=== PATIENT | female | born 1975 | race Caucasian/White ===

== ENCOUNTER 2018-10-16 05:29 | Inpatient (IN) | payer MEDICAID ==
[2018-10-16] VITALS (23 sets, daily range): BP systolic 102–146; BP diastolic 37–90
[~2018-10-16] VITALS: Ht 167.6 cm; Wt 99.3 kg
[2018-10-16] MEDS ORDERED: GELATIN SPONGE,ABSORBABLE 12-7MM SPONGE ONE (06:40)
[2018-10-16] MEDS ORDERED: THROMBIN (BOVINE) 5000 UNITS/VIAL TOP ONE (06:41)
[2018-10-16] MEDS ORDERED: LIDOCAINE HCL/EPINEPHRINE 1%-EPI 1:100,000 20 ML VIAL ONE (06:41)
[2018-10-16] MEDS ORDERED: BACITRACIN 50,000 UNITS/VIAL ONE (06:41)
[2018-10-16] MEDS ORDERED: NEOSTIGMINE METHYLSULFATE 1MG/ML 10 ML VIAL ONE (07:13)
[2018-10-16] MEDS ORDERED: FENTANYL CITRATE/PF 50MCG/ML 2ML VIAL ONE ×2 (07:13→08:09)
[2018-10-16] MEDS ORDERED: ROCURONIUM BROMIDE 10MG/ML VIAL 5ML IV ONE (07:14)
[2018-10-16] MEDS ORDERED: MIDAZOLAM HCL 2 MG/2 ML VIAL ONE (07:15)
[2018-10-16] MEDS ORDERED: PROPOFOL 200MG/20ML VIAL IV ONE (07:26)
[2018-10-16] MEDS ORDERED: NICARDIPINE 100 MG in SODIUM CHLORIDE 0.9% 60 ML IV PRN (07:30)
[2018-10-16] MEDS ORDERED: GLYCOPYRROLATE 0.2 MG/ML 2ML VIAL ONE (08:08)
[2018-10-16] MEDS ORDERED: KETOROLAC 30MG/ML VIAL ONE (08:09)
[2018-10-16] MEDS ORDERED: BACL20TA PO (08:10)
[2018-10-16] MEDS ORDERED: NORT25CA PO (08:10)
[2018-10-16] MEDS ORDERED: BUPR100T13 PO (08:10)
[2018-10-16] MEDS ORDERED: ACET-2853 PO (08:10)
[2018-10-16] MEDS ORDERED: GABA-531 PO (08:10)
[2018-10-16] MEDS ORDERED: ATOR40TA70 PO (08:10)
[2018-10-16] MEDS ORDERED: QUET200T29 PO (08:10)
[2018-10-16] MEDS ORDERED: METF-414 PO (08:10)
[2018-10-16] MEDS ORDERED: PARO10TA74 PO (08:10)
[2018-10-16] MEDS ORDERED: OMEP20CA10 PO (08:10)
[2018-10-16] MEDS ORDERED: DEXTROSE 50% WATER 50ML SYRINGE IV PRN (09:15)
[2018-10-16] MEDS: MORPHINE SULFATE 4 MG/ML CPJ (NOT FOR IM USE) IV PRN (09:50)
[2018-10-16] MEDS ORDERED: NITROPRUSSIDE 50 MG in SODIUM CHLORIDE 0.9% 250 ML IV PRN (10:00)
[2018-10-16] MEDS: DEXT 5%/LACTATED RINGERS 1,000 ML IV SCH ×2 (10:10→18:59)
[2018-10-16] MEDS ORDERED: ONDANSETRON INJ IV PRN (10:15)
[2018-10-16] MEDS ORDERED: HYDROMORPHONE PCA 10MG/50ML IV PRN (10:15)
[2018-10-16] MEDS ORDERED: DIPHENHYDRAMINE INJ IV PRN (10:15)
[2018-10-16] MEDS ORDERED: NALOXONE INJ IV PRN (10:15)
[2018-10-16] MEDS: INSULIN LISPRO 100 UNITS/ML SUBCUT SCH ×3 (11:56→20:54)
[2018-10-16] MEDS: BLOOD SUGAR DIAGNOSTIC STRIP TEST SCH ×3 (11:56→20:54)
[2018-10-16] MEDS ORDERED: CEFAZOLIN SODIUM 1000MG/VIAL IV SCH (14:00)
[2018-10-16] MEDS: CEFAZOLIN 1000MG PREMIX 50 ML IV SCH ×2 (14:00→22:08)
[2018-10-16] MEDS ORDERED: DOCUSATE SODIUM 100MG CAPSULE PO PRN (14:15)
[2018-10-16] MEDS ORDERED: LORAZEPAM 0.5MG TABLET PO PRN (14:15)
[2018-10-16] MEDS ORDERED: IPRATROPIUM/ALBUTEROL 0.5-3(2.5)MG/3ML NEB INH PRN (14:15)
[2018-10-16] MEDS ORDERED: CLONIDINE 0.1MG TABLET PO PRN (14:15)
[2018-10-16] MEDS ORDERED: ONDANSETRON HCL 4MG/2ML INJ IV PRN (14:15)
[2018-10-16 15:35] LABS: CHLORIDE 107 mEq/L (98-107)
[2018-10-16 15:42] LABS: BASOPHILS % 1.1 % (0.0-2.0); EOSINOPHILS % 4.9 % (0.0-5.0); HEMATOCRIT. 38.8 % (36.0-48.0); HEMOGLOBIN. 12.8 g/dL (12.0-16.0); LYMPHOCYTES % 50.9 % (20.0-50.0); MEAN CORPUSCULAR HEMOGLOBIN 28.7 pg (28.0-32.0); MEAN CORPUSCULAR VOLUME 86.8 fL (81.0-99.0); MONOCYTES % 3.9 % (2.0-8.0); NEUTROPHILS % 39.2 % (40.0-76.0); PLATELET 227 x1000/uL (130-400); RED BLOOD CELL COUNT 4.47 mill/uL (4.2-5.4); RED CELL DISTRIBUTION WIDTH 13.8 % (11.6-14.6)
[2018-10-16 18:42] LABS: CLARITY URINE CLEAR (CLEAR); COLOR URINE YELLOW (YELLOW); KETONES URINE NEGATIVE (NEGATIVE); LEUKOCYTE ESTERASE URINE TRACE (NEGATIVE); NITRITE URINE NEGATIVE (NEGATIVE); OCCULT BLOOD URINE 1+ (NEGATIVE); PROTEIN URINE NEGATIVE (NEGATIVE); SPECIFIC GRAVITY URINE 1.022 (1.005-1.030); UROBILINOGEN URINE 0.2 E.U./dL (0.2-1.0)
[2018-10-16 18:58] LABS: *AMPHETAMINES SCREEN URINE NEGATIVE (NEGATIVE); *BARBITURATES SCREEN URINE NEGATIVE (NEGATIVE); *COCAINE SCREEN URINE NEGATIVE (NEGATIVE)
[2018-10-16 18:59] LABS: CANNABINOID URINE SCREEN NEGATIVE (NEGATIVE); METHADONE URINE SCREEN NEGATIVE (NEGATIVE); PHENCYCLIDINE URINE SCREEN NEGATIVE (NEGATIVE)
[2018-10-16 19:04] LABS: *BENZODIAZEPINES SCREEN URINE PRESUMTIVE POSITIVE (NEGATIVE); OPIATES URINE SCREEN PRESUMTIVE POSITIVE (NEGATIVE)
[2018-10-16] MEDS: ATORVASTATIN CALCIUM 40MG TABLET PO SCH (22:08)
[2018-10-17] VITALS (18 sets, daily range): BP systolic 102–142; BP diastolic 55–79
[2018-10-17] MEDS: DEXT 5%/LACTATED RINGERS 1,000 ML IV SCH ×3 (04:22→16:32)
[2018-10-17 05:20] LABS: BASOPHILS % 0.5 % (0.0-2.0); EOSINOPHILS % 1.5 % (0.0-5.0); HEMATOCRIT. 36.4 % (36.0-48.0); HEMOGLOBIN. 12.2 g/dL (12.0-16.0); LYMPHOCYTES % 31.5 % (20.0-50.0); MEAN CORPUSCULAR HEMOGLOBIN 28.8 pg (28.0-32.0); MEAN CORPUSCULAR VOLUME 86.3 fL (81.0-99.0); MEAN PLATELET VOLUME 8.6 fl (7.4-10.4); MONOCYTES % 5.5 % (2.0-8.0); PLATELET 202 x1000/uL (130-400); RED BLOOD CELL COUNT 4.22 mill/uL (4.2-5.4); RED CELL DISTRIBUTION WIDTH 13.9 % (11.6-14.6)
[2018-10-17 05:25] LABS: CHLORIDE 107 mEq/L (98-107)
[2018-10-17 05:32] LABS: PHOSPHORUS 4.1 mg/dL (2.5-4.9)
[2018-10-17 05:33] LABS: LDL CHOLESTEROL 70 mg/dL (5-100)
[2018-10-17 05:35] LABS: HDL CHOLESTEROL 56 mg/dL (40-59)
[2018-10-17] MEDS: CEFAZOLIN 1000MG PREMIX 50 ML IV SCH (06:40)
[2018-10-17] MEDS: BLOOD SUGAR DIAGNOSTIC STRIP TEST SCH ×4 (06:40→21:30)
[2018-10-17] MEDS: INSULIN LISPRO 100 UNITS/ML SUBCUT SCH ×4 (06:40→21:00)
[2018-10-17] MEDS ORDERED: DOCUSATE SODIUM 100MG CAPSULE PO NR (11:15)
[2018-10-17] MEDS ORDERED: BISACODYL 5MG TABLET PO PRN (11:15)
[2018-10-17] MEDS: BUPROPION HCL 100MG SR TABLET PO SCH ×2 (12:51→22:13)
[2018-10-17] MEDS ORDERED: MAGNESIUM 1 G PREMIX 100 ML IV NR (17:00)
[2018-10-17] MEDS: MORPHINE SULFATE 4 MG/ML CPJ (NOT FOR IM USE) IV PRN (18:59)
[2018-10-17] MEDS: ATORVASTATIN CALCIUM 40MG TABLET PO SCH (20:22)
[2018-10-18] VITALS: BP 106/58
[2018-10-18] MEDS: MORPHINE SULFATE 4 MG/ML CPJ (NOT FOR IM USE) IV PRN ×5 (01:12→20:42)
[2018-10-18 04:00] VITALS: BP 106/60
[2018-10-18 07:09] LABS: BASOPHILS % 0.6 % (0.0-2.0); EOSINOPHILS % 2.9 % (0.0-5.0); HEMATOCRIT. 36.6 % (36.0-48.0); HEMOGLOBIN. 12.3 g/dL (12.0-16.0); LYMPHOCYTES % 35.8 % (20.0-50.0); MEAN CORPUSCULAR VOLUME 86.7 fL (81.0-99.0); MEAN PLATELET VOLUME 8.6 fl (7.4-10.4); MONOCYTES % 6.5 % (2.0-8.0); NEUTROPHILS % 54.2 % (40.0-76.0); PLATELET 209 x1000/uL (130-400); RED BLOOD CELL COUNT 4.23 mill/uL (4.2-5.4); RED CELL DISTRIBUTION WIDTH 13.4 % (11.6-14.6)
[2018-10-18] MEDS: BLOOD SUGAR DIAGNOSTIC STRIP TEST SCH ×4 (07:20→21:00)
[2018-10-18 07:42] LABS: CHLORIDE 105 mEq/L (98-107)
[2018-10-18] MEDS: INSULIN LISPRO 100 UNITS/ML SUBCUT SCH ×4 (07:50→21:00)
[2018-10-18 08:00] VITALS: BP 117/68
[2018-10-18] MEDS: BUPROPION HCL 100MG SR TABLET PO SCH ×2 (08:47→20:41)
[2018-10-18] MEDS: DOCUSATE SODIUM 100MG CAPSULE PO SCH (08:47)
[2018-10-18] MEDS: DEXT 5%/LACTATED RINGERS 1,000 ML IV SCH (08:48)
[2018-10-18 12:00] VITALS: BP 121/74
[2018-10-18 16:00] VITALS: BP 101/56
[2018-10-18 20:00] VITALS: BP 117/71
[2018-10-18] MEDS: ATORVASTATIN CALCIUM 40MG TABLET PO SCH (20:41)
[2018-10-19 00:45] VITALS: BP 109/65
[2018-10-19] MEDS: MORPHINE SULFATE 4 MG/ML CPJ (NOT FOR IM USE) IV PRN ×2 (01:34→08:34)
[2018-10-19] MEDS: DEXT 5%/LACTATED RINGERS 1,000 ML IV SCH (01:58)
[2018-10-19 04:00] VITALS: BP 103/55
[2018-10-19] MEDS: BLOOD SUGAR DIAGNOSTIC STRIP TEST SCH (06:42)
[2018-10-19 07:15] LABS: BASOPHILS % 0.6 % (0.0-2.0); EOSINOPHILS % 3.7 % (0.0-5.0); HEMATOCRIT. 34.7 % (36.0-48.0); HEMOGLOBIN. 11.5 g/dL (12.0-16.0); MEAN CORPUSCULAR HEMOGLOBIN 28.6 pg (28.0-32.0); MEAN PLATELET VOLUME 8.5 fl (7.4-10.4); MONOCYTES % 5.3 % (2.0-8.0); NEUTROPHILS % 54.4 % (40.0-76.0); PLATELET 197 x1000/uL (130-400); RED BLOOD CELL COUNT 4.04 mill/uL (4.2-5.4); RED CELL DISTRIBUTION WIDTH 13.1 % (11.6-14.6)
[2018-10-19 07:42] LABS: CHLORIDE 104 mEq/L (98-107)
[2018-10-19] MEDS: INSULIN LISPRO 100 UNITS/ML SUBCUT SCH (07:50)
[2018-10-19 08:00] VITALS: BP 119/71
[2018-10-19] MEDS: BUPROPION HCL 100MG SR TABLET PO SCH (08:33)
[2018-10-19] MEDS: DOCUSATE SODIUM 100MG CAPSULE PO SCH (08:33)
[2018-10-19 12:00] VITALS: BP 113/61
[2018-10-19 12:03] VITALS: BP 113/61
== END 2018-10-19 12:30 | disposition home or self-care (01) | DRG 321 ==
LOC: OR 05:29 → MICUNO 05:30 → 6EST 10-17 16:29
PROVIDERS: ADMIT Neurological Surgery; ATTEND Internal Medicine
PROC: 0RG10K0 Fusion of Cervical Vertebral Joint with Nonautologous Tissue Substitute, Anterior Approach, Anterior Column, Open Approach (ICD-10-PCS; principal; 2018-10-16)
PROC: 0RB30ZZ Excision of Cervical Vertebral Disc, Open Approach (ICD-10-PCS; 2018-10-16)
PROC: 4A11X4G Monitoring of Peripheral Nervous Electrical Activity, Intraoperative, External Approach (ICD-10-PCS; 2018-10-16)
DX: M48.02 Spinal stenosis, cervical region (principal); G82.50 Quadriplegia, unspecified; E83.51 Hypocalcemia; G95.20 Unspecified cord compression; G95.9 Disease of spinal cord, unspecified; M19.90 Unspecified osteoarthritis, unspecified site; I10 Essential (primary) hypertension; E11.9 Type 2 diabetes mellitus without complications; R26.9 Unspecified abnormalities of gait and mobility; E78.5 Hyperlipidemia, unspecified; F41.9 Anxiety disorder, unspecified; F32.9 Major depressive disorder, single episode, unspecified; M54.12 Radiculopathy, cervical region; Z87.891 Personal history of nicotine dependence; Z91.81 History of falling; Z98.84 Bariatric surgery status; Z98.891 History of uterine scar from previous surgery; Z79.899 Other long term (current) drug therapy
CPT/HCPCS: 36415; 72040; 72141; 80048; 80061; 80305; 82040; 82962; 83036; 83735; 84100; 84443; 86850; 86900; 88304; 88311; 92610; 93005; 97116; 97162; 97166; 97530; 97535; C1713; J0690; J1170; J1200; J1885; J2250; J2270; J2704; J2710; J3010; J3475; J3490; J7040; J7050; J7121; L0172